=== PATIENT | male | born 1965 | race Caucasian/White ===

== ENCOUNTER 2024-11-12 07:55 | Emergency (ER) | payer BC, SELFPAY ==
[2024-11-12 07:56] VITALS: BP 172/113
[2024-11-12 08:24] VITALS: BMI 24.0
[2024-11-12 08:44] LABS: Urine Character Clear (Clear)
--- NOTE | 2024-11-12 08:49 | ED.GENMED ---
History of Present Illness
General
Chief Complaint: Flank Pain
Source: patient
Exam Limitations: none
Time Seen by Provider: 11/12/24 08:15
Nursing documentation reviewed up to this point in time: agreed with
History of Present Illness
History of Present Illness:
Patient is a pleasant 5-year-old man who comes in with complaints of right flank pain. Patient reports it started 4 days ago and has been intermittent. Patient reports that 4 days ago he noticed some blood in his urine. Patient complains of
intermittent nausea. He denies chills and fever. Patient reports a few days ago he experienced vomiting when the pain first started.
Past History
Past History
ED Past Medical History: Other (Headaches)
ED Past Surgical History: Urological
Social History
Tobacco: Non-smoker
Alcohol: Other
Drug: None
Personal:
Living: with family
Employment: Other
Family History
Family History: Other
Review of Systems
Review of Systems
Allergies reviewed?: Yes
All Other Systems: ROS reviewed and negative except as documented in HPI and ROS
Constitutional: Reports no symptoms
EENT: Reports no symptoms
Respiratory: Reports no symptoms
Cardiac: Reports no symptoms
ABD/GI: Reports nausea and vomiting
: Reports flank pain and bleeding
Musculoskeletal: Reports no symptoms
Skin: Reports no symptoms
Neurological: Reports no symptoms
Endocrine: Reports no symptoms
Hematologic/Lymphatic: Reports no symptoms
Psychiatric: Reports no symptoms
Phy Exam
Physical Exam
Physical Exam:
Physical Exam
General: Patient appears uncomfortable. Holding right flank area
Neck: supple. no meningeal signs. normal psoterior pharynx
Heart: s1/s2 regular rate and rhythm, no murmur. equal radial pulses.
Lungs: no acute respiratory distress. clear bilaterally
Abdomen: normal bowel sounds. not tender. no CVAT
Neuro: alert and oriented. no focal neurological deficits
Skin: no rash
Psychiatric: well kept. interactive and cooperative
Extremities: no edema. no calf tenderness. negative homans. good distal pulses
Course
Orders/Labs/Results
Orders:
Orders
11/12/24 08:03
Urinalysis Reflex To Culture Urgent
Date Specimen was Collected: 11/12/24
Time Specimen was Collected: 08:00
Urine Microscopic Reflex Cult Urgent
11/12/24 08:35
Complete Blood Count/With Diff Urgent
Comprehensive Metabolic Panel Urgent
11/12/24 08:44
CT Abd/pel Without Iv Or Oral Urgent
Comment:
Reason For Exam: R flank pain
11/12/24 08:46
Ketorolac [Toradol] 30 mg IV NOW STA
Ondansetron Injectable [Zofran] 4 mg IV NOW STA
11/12/24 08:47
0.9% Sodium Chloride 1000 ml [Nss] 1,000 ml IV BOLUS
11/12/24 12:02
Tamsulosin [Flomax] 0.4 mg PO NOW STA
Abnormal Lab Results
11/12/24 11/12/24
08:03 08:35
RBC 4.63 L 10^6/uL
(4.70-6.10)
MCV 97.0 H fL
(80.0-94.0)
MCH 33.7 H pg
(27.0-31.0)
MPV 11.3 H fL
(7.4-10.4)
Abs Immat Gran (auto) 0.1 H 10^3/uL
(0-0.05)
Absolute Neuts (auto) 7.8 H 10^3/uL
(1.4-6.5)
Absolute Monos (auto) 1.0 H 10^3/uL
(0.1-0.6)
Lymphocytes % 15.2 L %
(20.5-51.1)
Monocytes % 9.7 H %
(1.7-9.3)
Glucose 109 H mg/dl
(70-99)
Ur Occult Blood Reflex 1+ A
(Negative)
Urine Albumin (Reflex) 1+ A
(Neg - Trace)
11/12/24 08:35
11/12/24 08:35
Vital Signs
Initial and Last Documented VS:
Initial Vital Signs
Temp Pulse Resp BP Pulse Ox
98.2 F 76 18 172/113 100
11/12/24 07:56 11/12/24 07:56 11/12/24 07:56 11/12/24 07:56 11/12/24 07:56
Last Documented Vital Signs
Temp Pulse Resp BP Pulse Ox
98.2 F 74 18 172/87 99
11/12/24 07:56 11/12/24 09:00 11/12/24 09:00 11/12/24 09:00 11/12/24 09:00
MDM/Problems Addressed
Differential Diagnosis Includes:
Right renal colic, pyelonephritis, acute diverticulitis
MDM/Problems Addressed:
Patient presents with acute right flank pain and hematuria
Acute Exacerbation and/or Progression of Chronic Illness:
Patient is acutely hypertensive, we could recheck blood pressure after patient's pain is improved
Acute Exacerbation and/or Progression of Chronic Illness: HTN
*Radiology
Radiology exam reviewed: radiology read reviewed
*Pulse Oximetry
SaO2: 100
Oxygen Mode of Delivery: Room air
Patient hypoxic: no
Comment: 100% on room air
*EKG
Interpreted by ED Provider?: NA
*Hearing Aid Assembly Supervisor Interpretation
Rate: normal
Interpretation: normal
Rhythm: sinus
*Critical Care Note
Total Time (30-74mins, 75-104mins- exclusive of procedures): Not Applicable
Data Reviewed
Review of Other/Old Records Reveals: Labs (Creatinine 1.0 in 2007)
Source: patient and spouse
Patient Management
Social determinants of health affecting care: Living situation and Strong social support
Escalation/DeEscalation of care consider admission/obs:
Patient feels better with Toradol. He reports pain is completely tolerable. There is no sign of acute renal failure or UTI.
ED Attending Note
-
Portions of this chart may have been created with voice recognition software.� Occasional wrong word or��sound alike� substitutions may have occurred due to the inherent limitations of voice recognition software.
Discharge Plan
Departure
Patient Disposition: Home (Routine Discharge)
Date of Disposition: 11/12/24
Time of Disposition: 11:59
Patient with high blood pressure during this ER visit?: Yes
Condition: Good
Covid-19: Not Applicable
Discharge Problem:
Renal colic on right side
Instructions: Kidney Stones (DC), Renal Colic (DC), BLOOD PRESSURE
Prescriptions:
New
tamsulosin [Flomax] 0.4 mg capsule
0.4 mg PO DAILY Qty: 5 0RF
ondansetron 4 mg tablet,disintegrating
4 mg PO Q6HPRN PRN (Reason: nausea and vomiting) Qty: 14 0RF
ketorolac 10 mg tablet
10 mg PO Q8H PRN (Reason: Pain) Qty: 7 0RF
No Action
Ibuprofen
Referrals:
Chris Baig DO [Family Provider, Internal Medicine]
Torsten Conley MD [Active, Urology]
Referral Note: Call the office tomorrow to schedule an appointment to see in 7 to 10 days
Activity Restrictions/Additional Instructions:
Do not take any NSAIDs such as Motrin, ibuprofen, Aleve or Advil within 8 hours of taking the ketorolac
Interventions
Interventions:
*Risk Screen - Suicide Last Done: 11/12/24 07:56
*General Assessment Last Done: 11/12/24 07:56
*Neglect/Abuse Screening Last Done: 11/12/24 08:27
*ED- Fall Risk Assessment Last Done: 11/12/24 08:27
*ED COVID-19 Vaccine History Last Done: 11/12/24 08:27
DB-Auclqr-Hwamdfyhfv Assessment Last Done: 11/12/24 08:42
ED-Male Genitourinary Assessment Last Done: 11/12/24 08:42
Discharge Date and Time
Print Language: CYPRIOT
[2024-11-12 08:53] LABS: Hematocrit 44.9 % (39.0-52.0); Hemoglobin 15.6 g/dL (13.0-18.0); Mean Corp Hgb Conc. 34.7 g/dL (33.0-37.0); Mean Corpuscular Volume 97.0 fL (80.0-94.0); Nucleated Red Blood Cells % 0 % (-); Platelet Count 142 10^3/uL (130-400); Red Cell Dist. Width 12.8 % (11.5-14.5)
[2024-11-12] MEDS: TORADOL 30 MG IV (08:53)
[2024-11-12] MEDS: NSS 1000 IV (08:53)
[2024-11-12] MEDS: ZOFRAN 4 MG IV (08:54)
[2024-11-12 09:00] VITALS: BP 172/87
[2024-11-12 09:26] LABS: ALT (SGPT) 29 U/L (0-50); AST (SGOT) 37 U/L (17-59); Albumin 4.4 g/dl (3.5-5.0); Alkaline Phosphatase 52 U/L (38-126); Blood Urea Nitrogen 13 mg/dl (9-20); Calcium 9.8 mg/dl (8.4-10.2); Carbon Dioxide 25 mmol/L (22-30); Chloride 105 mmol/L (98-107); Estimated Creatinine Clearance 64 ml/min; Glucose 109 mg/dl (70-99); Potassium 4.4 mmol/L (3.5-5.1); Sodium 137 mmol/L (135-145); Total Protein 7.7 g/dl (6.3-8.2); eGFR > 60.00
[2024-11-12 09:46] LABS: Urine Red Blood Cell 0-2 /HPF (0-2); Urine White Cell 0-2 /HPF (0-5)
[2024-11-12 11:00] VITALS: BP 135/70
[2024-11-12] MEDS: FLOMAX 0.4 MG PO (12:26)
== END 2024-11-12 13:16 | disposition home or self-care (01) ==
LOC: EMR 07:55
PROVIDERS: EMERGENCY PHYSICIAN Emergency Medicine; FAMILY PHYSICIAN Internal Medicine
DX: N13.2 Hydronephrosis with renal and ureteral calculous obstruction (principal); I10 Essential (primary) hypertension
CPT/HCPCS: 96374; 96375; 96361; 99284; 74176; 80053; 81003; 81015; 85025